=== PATIENT | female | born 1970 | race Caucasian/White ===

== ENCOUNTER 2016-11-02 07:36 | Emergency (ER) | payer MEDICAID ==
[2016-11-02 07:50] VITALS: RESP 16; TEMP 98.2
[2016-11-02] MEDS ORDERED: NS 1,000 ML IV ONE (07:51)
[2016-11-02 08:17] LABS: ANION GAP 12 mEq/L (8-16); CALCIUM 9.9 mg/dL (8.5-10.4); CARBON DIOXIDE 29 mEq/l (22-31); CHLORIDE 99 mEq/L (97-110); CREATININE 0.7 mg/dL (0.6-1.0); GLOMERULAR FILTRATION RATE > 60; GLUCOSE 119 mg/dL (70-100); POTASSIUM 3.4 mEq/L (3.5-5.2); SODIUM 140 mEq/L (134-144)
--- NOTE | 2016-11-02 08:20 | UCPHY ---
H & P Patient Type: Established Chief Complaint Nursing Narrative: C/o nausea, vomiting, and diarrhea (once) since yesterday. Reports pt got flu vaccine on Wednesday. Denies nausea currently. Time Seen by Provider: 11/02/16 07:50 HPI/ROS: This patient complains of vomiting. She explains that she developed some nausea on Wednesday night, 2 days prior to arrival in yesterday morning started with vomiting had several episodes through the day. She now feels fatigued explain that she feels like all of her energy is down in her feet. She had 1 episode of diarrhea yesterday but a normal bowel movement this morning. She is not tolerating p.o. intake because any attempts at fluids as caused her to vomit. At the moment she has mild ongoing nausea. She speculates that they influenza vaccination she had on Wednesday may be contributing to her symptoms. ROS: No fevers or chills. No other constitutional symptoms. HEENT: No recent URI symptoms. She has a 3/10 mild headache similar to previous headaches by parietal in location currently. This improved from yesterday when it was more of a moderate pain. Neuro: No confusion. No other symptoms. Pulmonary: No coughing. Cardiovascular: No heart palpitations. She does report mild lightheadedness this morning. GI: She had moderate abdominal cramping yesterday that has resolved. Currently no abdominal pain. : No urinary symptoms. And 10 point ROS is otherwise negative. Source: Patient Exam Limitations: No limitations - Personal History LMP (Females 10-55): Hysterectomy Current Tetanus Diphtheria and Acellular Pertussis (TDAP): Yes Tetanus Vaccine Date: within 10 years - Medical/Surgical History PMH: Past surgical history: Total hysterectomy. Umbilical hernia repair Cholecystectomy Hx Asthma: No Hx Chronic Respiratory Disease: No Hx Diabetes: No Hx Cardiac Disease: No Hx Renal Disease: No Hx Cirrhosis: No Hx Alcoholism: No Hx HIV/AIDS: No Hx Splenectomy or Spleen Trauma: No Other PMH: med hx-diverticulitis,thyroid,fibromyalgia. [id number],hyst, thyroidec,chol, tubal ligation,umbilical hernia - Family History Significant Family History: No pertinent family hx - Social History Smoking Status: Former smoker Alcohol Use: Sober Drug Use: None Additional Social History: No recent foreign travel or suspect food - Physical Exam Exam: General Appearance: Alert, no distress. Eyes: Pupils equal and round no pallor or injection. ENT, Mouth: Mucous membranes dry. Respiratory: There are no retractions, lungs are clear to auscultation. Cardiovascular: Regular rate and rhythm. Gastrointestinal: Abdomen is soft and nontender, no masses, bowel sounds normal. Back: No CVA tenderness Neurological: Alert with no focal deficits Skin: Warm and dry, no rashes. Musculoskeletal: Neck is supple nontender. Extremities are symmetrical, full range of motion. Psychiatric: Mood and affect normal DIFFERENTIAL DIAGNOSIS: After history and physical exam differential diagnosis was considered for viral gastroenteritis, immunizations side effects, food poisoning Constitutional: Initial Vital Signs Temperature (C) 36.8 C 11/02/16 07:48 Heart Rate 81 11/02/16 07:48 Respiratory Rate 16 11/02/16 07:48 Blood Pressure 134/66 H 11/02/16 07:48 O2 Sat (%) 95 11/02/16 07:48 O2 Delivery Mode Room Air Allergies/Adverse Reactions: amoxicillin trihydrate [From Augmentin] Allergy (Mild, Verified 11/02/16 07:47) Rash potassium clavula *RETIRED-06/27/12 [From Augmentin] Allergy (Mild, Verified 07:47) Rash sulfamethoxazole [From Bactrim] Allergy (Unknown, Verified 11/02/16 07:47) GI trimethoprim [From Bactrim] Allergy (Unknown, Verified 11/02/16 07:47) GI Home Medications: Medication Instructions Recorded Levothyroxine 06/13/16 Ondansetron Odt [Zofran Odt] 4 - 8 mg PO Q4PRN PRN #4 tab 11/02/16 Medical Decision Making ED Course/Re-evaluation: IV normal saline bolus with improvement in her symptoms. She no longer feels as much fatigue or lightheadedness per her report. No significant electrolyte abnormalities on her basic metabolic panel. She appears clinically well. On a recheck at 8:45 a.m. she has no orthostatic symptoms feels improved and would like to go home. This time she has no nausea or abdominal pain. - Data Points Laboratory Results: Laboratory Results 11/02/16 07:58 11/02/16 07:58 Sodium 140 mEq/L (134-144) Potassium 3.4 L mEq/L (3.5-5.2) Chloride 99 mEq/L (97-110) Carbon Dioxide 29 mEq/l (22-31) Anion Gap 12 mEq/L (8-16) BUN 19 mg/dL (7-23) Creatinine 0.7 mg/dL (0.6-1.0) Estimated GFR > 60 Glucose 119 H mg/dL (70-100) Calcium 9.9 mg/dL (8.5-10.4) Medications Given: Discontinued Medications Sodium Chloride (Ns) 1,000 mls @ 0 mls/hr IV ONCE ONE PRN Reason: Wide Open Stop: 11/02/16 07:52 Last Admin: 11/02/16 07:58 Dose: 1,000 mls Departure - Departure Disposition: Home, Routine, Self-Care Clinical Impression: Vomiting, Dehydration Condition: Good Instructions: Acute Nausea and Vomiting (ED) Additional Instructions: Diagnosis: 1. Vomiting 2. Dehydration Plan: Drink plenty fluids Light diet until you feel improved Zofran for nausea or vomiting if needed. Return for any significant worsening despite the treatment plan. Referrals: TIAGO EGAN,. [Primary Care Provider] - As per Instructions Stand Alone Forms: Work Excuse Prescriptions: Ondansetron Odt [Zofran Odt] 4 - 8 mg PO Q4PRN PRN #4 tab PRN Reason: Vomiting - PQRS PQRS Measurement: NA
[2016-11-02 08:53] VITALS: BP 124/63; PULSE 66; O2SAT 97
== END 2016-11-02 08:53 | disposition home or self-care (01) ==
LOC: CED 07:36
DX: R11.2 Nausea with vomiting, unspecified (principal); E86.0 Dehydration; R19.7 Diarrhea, unspecified; Z87.891 Personal history of nicotine dependence
CPT/HCPCS: 80048-PO; 96360-PO; G0463-PO

== ENCOUNTER 2017-02-12 08:49 | Emergency (ER) | payer MEDICAID ==
--- NOTE | 2017-02-12 08:54 | EDPHY ---
H & P HPI/ROS: CHIEF COMPLAINT: Vomiting. HISTORY OF PRESENT ILLNESS: The patient is a 46-year-old female who presents with vomiting since yesterday morning. She arrived at work feeling normal but became diaphoretic and began to vomit. She admits associated lightheadedness. She has been unable to tolerate food or fluids for over 24 hours. She denies diarrhea, constipation (normal bowel movement this morning), fever, cough, hematemesis, abdominal pain, recent sickness. She has a history of similar symptoms, about once per month, since October. She has been exploring this with her PCP. She last vomited 8 hours ago. REVIEW OF SYSTEMS: A 10 point review of systems was performed and is negative with the exception of the elements mentioned in the history of present illness. Source: Patient Exam Limitations: No limitations - Personal History Tetanus Vaccine Date: within 10 years - Medical/Surgical History Hx Asthma: No Hx Chronic Respiratory Disease: No Hx Diabetes: No Hx Cardiac Disease: No Hx Renal Disease: No Hx Cirrhosis: No Hx Alcoholism: No Hx HIV/AIDS: No Hx Splenectomy or Spleen Trauma: No Other PMH: 1. Diverticulitis. 2. Fibromyalgia. 3. IBS. 4. . 5. Hysterectomy. 6. Thyroidectomy. 7. Cholecystectomy. 8. Tubal ligation. 9. 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 - Physical Exam Exam: General Appearance: Alert, no acute distress. BP 128/90. Eyes: Pupils equal and round, no conjunctival injection, no discharge. ENT, Mouth: Mucous membranes are moist, no oropharyngeal erythema or edema. Neck: No lymphadenopathy, supple. Respiratory: Lungs are clear to auscultation; no wheezes, rales, or rhonchi. Cardiovascular: Regular rate and rhythm; no murmur, rub, or gallop. Gastrointestinal: Abdomen is soft and nontender, no masses or organomegaly, bowel sounds normal. Skin: Warm and dry, no rashes, normal color. Back: Nontender to palpation over the thoracolumbar spine. Extremities: No lower extremity edema, no calf tenderness or swelling. Neurological: Alert and oriented. Moving all four extremities easily and equally. Psychiatric: Normal affect. Constitutional: Initial Vital Signs Temperature (C) 36.3 C 02/12/17 09:05 Heart Rate 62 02/12/17 09:05 Respiratory Rate 16 02/12/17 09:05 Blood Pressure 128/90 H 02/12/17 09:05 O2 Sat (%) 97 02/12/17 09:05 O2 Delivery Mode Room Air Allergies/Adverse Reactions: amoxicillin trihydrate [From Augmentin] Allergy (Mild, Verified 02/12/17 09:12) Rash potassium clavula *RETIRED-06/27/12 [From Augmentin] Allergy (Mild, Verified 09:12) Rash sulfamethoxazole [From Bactrim] Allergy (Unknown, Verified 02/12/17 09:12) GI trimethoprim [From Bactrim] Allergy (Unknown, Verified 02/12/17 09:12) GI Home Medications: Medication Instructions Recorded Levothyroxine 06/13/16 Percocet 5/325 (*) 02/12/17 Medical Decision Making ED Course/Re-evaluation: 46-year-old female presents with 24 hours of vomiting. She denies associated symptoms. She has a normal exam. An IV was established. 1L IV saline administered for rehydration. 1031: Reassessed patient. She feels much better after receiving the normal saline intravenously. She does not want to take any anti emetics. She has rectal Phenergan and oral Zofran at home to use if needed. She feels that she will be able to tolerate p.o.. She feels ready to return home. She does not want undergo a p. o. challenge in the emergency department. On reexamination her abdomen remains soft and nontender. I do not suspect cholecystitis, pancreatitis, appendicitis, gastroenteritis (no diarrhea), or diverticulitis (she has h/o diverticulitis). This could be gastritis, but there is no pain involved. She does not appear toxic or seriously ill and I think she can safely return home. - Data Points Medications Given: Discontinued Medications Sodium Chloride (Ns) 1,000 mls @ 0 mls/hr IV ONCE ONE PRN Reason: Wide Open Stop: 02/12/17 09:46 Last Admin: 02/12/17 09:45 Dose: 1,000 mls Departure - Departure Disposition: Home, Routine, Self-Care Clinical Impression: Vomiting Qualifiers: Vomiting type: unspecified Vomiting Intractability: non-intractable Nausea presence: with nausea Qualified Code(s): R11.2 - Nausea with vomiting, unspecified Condition: Good Instructions: Acute Nausea and Vomiting (ED) Additional Instructions: Drink only clear fluids for the next 24 hours. Advance diet slowly as tolerable. Start with bland foods such as bananas, rice, toast, applesauce, etc. Follow up with your primary care provider for reevaluation. Return for any serious worsening of condition. Referrals: TIAGO EGAN,. [Primary Care Provider] - As per Instructions Stand Alone Forms: Work Excuse Report Scribed for: Radha Posada Report Scribed by: Yahir Yarbrough Date of Report: 02/12/17 Time of Report: 09:20 Physician Review and Approval Statement: 02/12/17 09:16 Portions of this note were transcribed by the neuropsychology medical consultant. I, Dr. Radha Posada, personally performed the history, physical exam, and medical decision- making; and confirmed the accuracy of the information in the transcribed note.
[2017-02-12 09:09] VITALS: TEMP 97.3
[2017-02-12] MEDS ORDERED: NS 1,000 ML IV ONE (09:45)
[2017-02-12 10:32] VITALS: BP 124/78; PULSE 57; RESP 14; O2SAT 94
== END 2017-02-12 11:02 | disposition home or self-care (01) ==
LOC: CED 08:49
DX: R11.2 Nausea with vomiting, unspecified (principal); Z87.891 Personal history of nicotine dependence

== ENCOUNTER 2018-03-23 08:48 | Emergency (ER) | payer MEDICAID ==
[2018-03-23] MEDS ORDERED: NS 1,000 ML IV ONE (09:16)
--- NOTE | 2018-03-23 09:16 | EDPHY ---
H & P Time Seen by Provider: 03/23/18 08:55 HPI/ROS: 47 yo F presents complaining of dehydration. She states yesterday early in the morning she began vomiting and vomited throughout the night until approximately 3:00 a.m., associated with mild upper abdominal cramping. She states this morning of a cramping and vomiting have dissipated however she is very concerned that she is dehydrated."I feel like a prune" No diarrhea and no further abdominal pain. Review of systems As per HPI General no fever no chills no weakness HEENT no eye pain no eye discharge. No eye redness, no sore throat Respiratory no cough, no shortness of breath Cardiac no chest pain, no peripheral edema GI no abdominal pain, no diarrhea, no constipation, no nausea, positive vomiting no flank pain, no hematuria, no dysuria Musculoskeletal no myalgias, no joint pain Heme no easy bruising, no easy bleeding Endo no polyuria, no polydipsia Skin no rashes, no pruritus Neuro no syncope, no dizziness, no headaches Psych is no suicidal ideation, no homicidal ideation Past Medical/Surgical History: Colon resection, May 2017 Social History: Denies alcohol or drug use Smoking Status: Former smoker Physical Exam: 47-year-old female alert and oriented no acute distress nontoxic appearance, afebrile HEENT atraumatic normocephalic, extraocular muscles intact, anicteric Oropharynx negative for erythema negative exudate, tolerating her own secretions Neck supple no meningismus Lungs clear to auscultation bilaterally Heart regular rate and rhythm without murmur rub or gallop Abdomen nondistended normoactive bowel sounds soft nontender, no guarding no rebound Back no CVA tenderness, no step-offs, no spinal tenderness Extremities no cyanosis clubbing or edema Neuro alert and oriented, no focal deficits Constitutional: Initial Vital Signs Temperature (C) 37.2 C 03/23/18 08:55 Heart Rate 89 03/23/18 08:55 Respiratory Rate 16 03/23/18 08:55 Blood Pressure 118/85 H 03/23/18 08:55 O2 Sat (%) 96 03/23/18 08:55 O2 Delivery Mode Room Air Allergies/Adverse Reactions: amoxicillin trihydrate [From Augmentin] Allergy (Mild, Verified 03/23/18 08:58) Rash potassium clavula *RETIRED-06/27/12 [From Augmentin] Allergy (Mild, Verified 04/04 08:58) Rash sulfamethoxazole [From Bactrim] Allergy (Unknown, Verified 03/23/18 08:58) GI trimethoprim [From Bactrim] Allergy (Unknown, Verified 03/23/18 08:58) GI Home Medications: Medication Instructions Recorded Levothyroxine 06/13/16 Percocet 5/325 (*) 02/12/17 Medical Decision Making ED Course/Re-evaluation: Patient seen and evaluated for"feeling dehydrated" Benign abdominal exam IV established IV fluids normal saline 1 L given Following fluids patient tolerated a popsicle Feeling markedly improved Impression Dehydration post gastroenteritis/gastritis Plan Discharge home Follow-up with primary care physician Return as needed Differential Diagnosis: Differential diagnosis considered but not limited to: Gastroenteritis, cyclical vomiting, gastritis, dehydration, bowel obstruction - Data Points Medications Given: Discontinued Medications Sodium Chloride (Ns) 1,000 mls @ 0 mls/hr IV ONCE ONE PRN Reason: Wide Open Stop: 03/23/18 09:17 Last Admin: 03/23/18 09:27 Dose: 1,000 mls Departure - Departure Disposition: Home, Routine, Self-Care Clinical Impression: Dehydration Condition: Good Instructions: Dehydration (ED), Acute Nausea and Vomiting (ED) Referrals: Sagar Rashid MD [Primary Care Provider] - As per Instructions Stand Alone Forms: Work Excuse
[2018-03-23 10:41] VITALS: BP 148/97
== END 2018-03-23 10:53 | disposition home or self-care (01) ==
LOC: CED 08:48
DX: E86.0 Dehydration (principal); Z87.891 Personal history of nicotine dependence

== ENCOUNTER 2018-04-22 09:30 | Emergency (ER) | payer MEDICAID ==
[2018-04-22] MEDS ORDERED: ONDANSETRON DISINTEGRATING 4 MG TAB PO ONE (09:39)
[2018-04-22] MEDS ORDERED: NS 500 ML IV ONE (09:40)
[2018-04-22] MEDS ORDERED: ONDANSETRON 4 MG/2 ML VIAL IVP ONE (09:52)
--- NOTE | 2018-04-22 10:02 | EDPHY ---
H & P Time Seen by Provider: 04/22/18 10:00 HPI/ROS: Chief complaint. Nausea and vomiting HPI. 47-year-old female with nausea vomiting that began 3 o'clock this morning. She thinks possibly bad food. Otherwise no recent travel or sick contacts. No diarrhea. She has generalized crampy abdominal pain. She was seen for same March 23. No chest discomfort or trouble breathing. No fever. No urinary symptoms. ROS Constitutional. no fever/chills, no weakness Eyes. no problems with vision ENT. no sore throat, no nasal drainage Cardiovascular. no chest pain Respiratory. no shortness of breath, no cough Abdominal. Abdominal pain with nausea vomiting but no diarrhea . no problems urinating MS. no calf pain/swelling, no neck/back pain, no joint pain Skin. no rash Lymph. no swollen glands Neuro. no headache, no dizziness, no difficulty walking or with speech Past Medical/Surgical History: Past medical history is significant for diverticulitis, fibromyalgia, IBS, hysterectomy, cholecystectomy in 2017, thyroidectomy, cholecystectomy, tubal ligation Social History: Single, nonsmoker, no alcohol Smoking Status: Former smoker Physical Exam: General Appearance: Alert well-developed female moderate distress vital signs are stable Eyes: Pupils equal and round no pallor or injection. ENT, Mouth: Mucous membranes are moist. Respiratory: There are no retractions, lungs are clear to auscultation. Cardiovascular: Regular rate and rhythm. Gastrointestinal: Abdomen is soft with generalized diffuse tenderness. Normal bowel sounds. No mass. Neurological: Intact Skin: Warm and dry, no rashes. Musculoskeletal: Neck is supple nontender. Extremities symmetrical, full range of motion. Psychiatric: Patient is oriented X 3, there is no agitation. Constitutional: Initial Vital Signs Temperature (C) 36.6 C 04/22/18 09:34 Heart Rate 62 04/22/18 09:34 Respiratory Rate 18 04/22/18 09:34 Blood Pressure 190/120 H 04/22/18 09:34 O2 Sat (%) 95 04/22/18 09:34 O2 Delivery Mode Nasal Cannula O2 (L/minute) 2 Allergies/Adverse Reactions: amoxicillin trihydrate [From Augmentin] Allergy (Mild, Verified 04/22/18 09:38) Rash potassium clavula *RETIRED-06/27/12 [From Augmentin] Allergy (Mild, Verified 04/04 09:38) Rash sulfamethoxazole [From Bactrim] Allergy (Unknown, Verified 04/22/18 09:38) GI trimethoprim [From Bactrim] Allergy (Unknown, Verified 04/22/18 09:38) GI Home Medications: Medication Instructions Recorded Levothyroxine 06/13/16 Oxycodone HCl 04/22/18 Promethazine HCl [Phenergan 50mg 50 mg PO Q6-8PRN PRN #10 tablet 04/22/18 tab] Medical Decision Making - Diagnostics Imaging Results: Imaging Impressions Abdomen CT 04/22/18 11:11 Impression: 1. Normal appendix. No obstruction or adynamic ileus. 2. No localized intra-abdominal inflammatory process. 3. Minimal post cholecystectomy biliary dilation is unchanged since 2011. Findings discussed with Emergency Department physician, APOLONIA ZAMAN at 2017 12:12. CT abdomen and pelvis reviewed by me and discussed with Dr. Velasquez shows a normal appendix. No evidence of bowel obstruction. No evidence for abscess. Procedures: IV normal saline. Zofran and morphine for nausea and pain ED Course/Re-evaluation: Re-evaluation at 11:00 a.m.. Patient has thrown up 1 more time. She complains of continued abdominal discomfort. We discussed further imaging studies as the patient has had previous abdominal surgery. She expresses understanding and agreement Point of care CBC and chemistry are normal with white blood cell count 8.9 Re-evaluation again at 12:20 p.m.. Patient and I discussed imaging and lab results. We discussed treatment plan including criteria for return and importance follow-up and further evaluation. She expresses understanding and agreement. Where finishing her 2nd L of saline. Recheck again at 1:15 p.m.. 2nd bag of saline is in. No further vomiting. Patient and I again talked about laboratory and imaging study evaluation. We again talked about treatment plan including criteria for return and importance of follow-up and further evaluation. She expresses understanding and agreement Differential Diagnosis: I considered small-bowel obstruction as the patient has had previous abdominal surgery. Considered IBS and diverticulitis as well. There are no acute findings. She has a normal CBC, chemistry, CT abdomen and pelvis - Data Points Laboratory Results: 04/22/18 11:19 POC Sodium 141 mEq/L mEq/L (135-145) POC Potassium 3.5 mEq/L mEq/L (3.3-5.0) POC Chloride 101.0 mEq/L mEq/L (97-110) POC Total CO2 26 mEq/L mEq/L (22-31) POC BUN 14 mg/dL mg/dL (7-23) POC Creatinine 0.6 mg/dL mg/dL (0.6-1.0) POC Glucose 113 mg/dL H mg/dL (70-100) POC Calcium 8.6 mg/dL mg/dL (8.5-10.4) Medications Given: Discontinued Medications Diphenhydramine HCl (Benadryl Injection) 12.5 mg IVP EDNOW ONE Stop: 04/22/18 11:33 Last Admin: 04/22/18 11:40 Dose: 12.5 mg Sodium Chloride (Ns) 500 mls @ 1,000 mls/hr IV ONCE ONE PRN Reason: Protocol Stop: 04/22/18 10:09 Last Admin: 04/22/18 09:49 Dose: 500 mls Sodium Chloride (Ns) 1,000 mls @ 0 mls/hr IV EDNOW ONE; Wide Open PRN Reason: Protocol Stop: 04/22/18 11:33 Last Admin: 04/22/18 11:37 Dose: 1,000 mls Metoclopramide HCl (Reglan Injection) 10 mg IVP EDNOW ONE Stop: 04/22/18 11:33 Last Admin: 04/22/18 11:37 Dose: 10 mg Morphine Sulfate (Morphine) 6 mg IVP EDNOW ONE Stop: 04/22/18 10:07 Last Admin: 04/22/18 10:33 Dose: Not Given Morphine Sulfate (Morphine) 6 mg IVP EDNOW ONE Stop: 04/22/18 10:26 Last Admin: 04/22/18 10:26 Dose: 6 mg Ondansetron HCl (Zofran Odt) 4 mg PO EDNOW ONE Stop: 04/22/18 09:40 Last Admin: 04/22/18 10:08 Dose: Not Given Ondansetron HCl (Zofran) 4 mg IVP EDNOW ONE Stop: 04/22/18 09:53 Last Admin: 04/22/18 09:56 Dose: 4 mg Promethazine HCl (Phenergan) 12.5 mg IVP EDNOW ONE Stop: 04/22/18 10:15 Last Admin: 04/22/18 10:22 Dose: 12.5 mg Point of Care Test Results: CBC CBC Collection Date 04/22/18 CBC Collection Time 09:50 WBC 8.9 RBC 5.12 HGB 16.4 HCT 49.5 PLT 211 Neut # 6.4 Neut 71.4 LYMPH # 2.1 LYMPH 23.9 Other WBC # 0.4 Other WBC 4.7 MCV 96.7 Chemistry 04/22/18 11:19 POC Sodium 141 mEq/L mEq/L (135-145) POC Potassium 3.5 mEq/L mEq/L (3.3-5.0) POC Chloride 101.0 mEq/L mEq/L (97-110) POC Total CO2 26 mEq/L mEq/L (22-31) POC BUN 14 mg/dL mg/dL (7-23) POC Creatinine 0.6 mg/dL mg/dL (0.6-1.0) POC Glucose 113 mg/dL H mg/dL (70-100) POC Calcium 8.6 mg/dL mg/dL (8.5-10.4) Departure - Departure Disposition: Home, Routine, Self-Care Clinical Impression: Vomiting Qualifiers: Vomiting type: unspecified Vomiting Intractability: non-intractable Nausea presence: with nausea Qualified Code(s): R11.2 - Nausea with vomiting, unspecified Condition: Good Instructions: Promethazine (By mouth), Acute Nausea and Vomiting (ED) Additional Instructions: Frequent, small sips fluids well nauseated. Gradual diet advancement. Phenergan as needed for nausea and vomiting. Return for worsening pain or vomiting. Recheck in 1 day if not improved Referrals: Sagar Rashid MD [Primary Care Provider] - 1 day, if not improved Prescriptions: Promethazine HCl [Phenergan 50mg tab] 50 mg PO Q6-8PRN PRN #10 tablet PRN Reason: Nausea/Vomiting, Use 1st
[2018-04-22] MEDS ORDERED: PROMETHAZINE HCL 25 MG/ML INJ IVP ONE (10:14)
[2018-04-22] MEDS ORDERED: IOPAMIDOL (ISOVUE-300) 100 ML BTL ONE (11:17)
[2018-04-22] MEDS ORDERED: NS 1,000 ML IV ONE (11:32)
[2018-04-22] MEDS ORDERED: METOCLOPRAMIDE 10 MG/2 ML VIAL IVP ONE (11:32)
[2018-04-22 13:41] VITALS: BP 170/110
== END 2018-04-22 13:37 | disposition home or self-care (01) ==
LOC: CED 09:30
DX: R11.2 Nausea with vomiting, unspecified (principal); E86.9 Volume depletion, unspecified; Z87.891 Personal history of nicotine dependence
CPT/HCPCS: 74177-PO; 80048-PO; 96374; J1200; J2270; J2405; J2550; J2765; Q9967

== ENCOUNTER 2018-07-12 12:58 | Emergency (ER) | payer SELFPAY ==
[2018-07-12] MEDS ORDERED: NS 2,000 ML IV ONE (13:10)
[2018-07-12] MEDS ORDERED: METOCLOPRAMIDE 10 MG/2 ML VIAL IVP ONE (13:13)
[2018-07-12] MEDS ORDERED: KETOROLAC 15 MG/1 ML SDV IVP ONE ×2 (13:13→14:49)
[2018-07-12] MEDS ORDERED: HALOPERIDOL LACT 5 MG/ML INJ IVP ONE (13:13)
[2018-07-12] MEDS ORDERED: LORazepam 2 MG/ML INJ IVP ONE (13:20)
--- NOTE | 2018-07-12 13:38 | EDPHY ---
H & P Stated Complaint: abd pain and vomiting started today . Time Seen by Provider: 07/12/18 13:07 HPI/ROS: This patient presents with nausea, vomiting & abdominal pain. She explains that she developed some crampy, achy and sharp pains in upper half of her belly associated with nausea starting at 3:45 a.m. The patient develops onset of vomiting and/or around 11 30 a.m. Today with ongoing nausea and vomiting currently. She reports currently having mild upper abdominal crampy discomfort similar prior episodes of her vomiting. She has not taken any medications today. She was given ride here by private vehicle for evaluation. ROS: Constitutional: No fevers HEENT: No URI symptoms Pulmonary: No cough shortness of breath Cardiovascular: No chest pain. GI: No lower belly pain. No hematemesis or coffee-ground emesis. No diarrhea. : No urinary symptoms. No hematuria Neuro: Complaints 10 point review of symptoms is performed and otherwise negative with exception of pertinent positives and negatives listed in HPI and ROS Source: Patient Exam Limitations: No limitations - Personal History Current Tetanus Diphtheria and Acellular Pertussis (TDAP): Yes Tetanus Vaccine Date: 2016 - Medical/Surgical History Hx Asthma: No Hx Chronic Respiratory Disease: No Hx Diabetes: No Hx Cardiac Disease: No Hx Renal Disease: No Hx Cirrhosis: No Hx Alcoholism: No Hx HIV/AIDS: No Hx Splenectomy or Spleen Trauma: No Other PMH: 1. Diverticulitis with partial colectomy. 2. Fibromyalgia. 3. IBS, chronic abdominal pain. 4. . 5. Hysterectomy. 6. Colectomy 2017. 6. Thyroidectomy. 7. Cholecystectomy. 8. Tubal ligation. 9. Umbilical hernia. Cannabis abuse - Family History Significant Family History: No pertinent family hx - Social History Smoking Status: Former smoker Alcohol Use: None Drug Use: Marijuana Additional Social History: The patient reports that she has cut back a bit on her marijuana use which has been chronic she reports that is now intermittent. She denies any other drug use. - Physical Exam Exam: Vital signs notable for hypertension General Appearance: Alert, no distress. Eyes: Pupils equal and round no pallor or injection. ENT, Mouth: Mucous membranes moist. Respiratory: There are no retractions, lungs are clear to auscultation. Cardiovascular: Regular rate and rhythm. No murmur gallop or rub Gastrointestinal: Normoactive, soft, mild epigastric tenderness no organomegaly Neurological: GCS 15 Skin: Warm and dry, no rashes. Musculoskeletal: Neck is supple nontender. Extremities are symmetrical, full range of motion. Psychiatric: Mood and affect normal DIFFERENTIAL DIAGNOSIS: After history and physical exam differential diagnosis was considered for cannabis hyperemesis, pancreatitis, hepatitis, viral illness , gastritis Constitutional: Initial Vital Signs Temperature (C) 36.8 C 07/12/18 13:05 Heart Rate 66 07/12/18 13:05 Respiratory Rate 20 07/12/18 13:05 Blood Pressure 223/126 H 07/12/18 13:05 O2 Sat (%) 96 07/12/18 13:05 O2 Delivery Mode Room Air Allergies/Adverse Reactions: amoxicillin trihydrate [From Augmentin] Allergy (Verified 07/12/18 13:04) Pt reports Rash potassium clavula *RETIRED-06/27/12 [From Augmentin] Allergy (Verified 07/12/18 13:04) Pt reports Rash sulfamethoxazole [From Bactrim] Allergy (Verified 07/12/18 13:04) Pt reports rash trimethoprim [From Bactrim] Allergy (Verified 07/12/18 13:04) Pt reports rash Home Medications: Medication Instructions Recorded Levothyroxine 06/13/16 Ondansetron Odt [Zofran Odt] 4 - 8 mg PO Q4PRN PRN #4 tab 07/12/18 Medical Decision Making ED Course/Re-evaluation: IV normal saline bolus Benadryl IV, Reglan, Haldol, Toradol with relief at 2:52 p.m. A pain level of 6 with nausea resolved when she hold still but recurrent nausea with movement. Patient treated with Zofran an additional dose of Toradol with relief. - Data Points Medications Given: Discontinued Medications Diphenhydramine HCl (Benadryl Injection) 25 mg IVP EDNOW ONE Stop: 07/12/18 13:13 Last Admin: 07/12/18 13:27 Dose: 25 mg Haloperidol Lactate (Haldol Injection) 5 mg IVP EDNOW ONE Stop: 07/12/18 13:14 Last Admin: 07/12/18 13:30 Dose: 5 mg Sodium Chloride (Ns) 2,000 mls @ 0 mls/hr IV EDNOW ONE; Wide Open PRN Reason: Protocol Stop: 07/12/18 13:11 Last Admin: 07/12/18 13:35 Dose: 2,000 mls Ketorolac Tromethamine (Toradol) 15 mg IVP EDNOW ONE Stop: 07/12/18 13:14 Last Admin: 07/12/18 13:31 Dose: 15 mg Ketorolac Tromethamine (Toradol) 15 mg IVP ONCE ONE Stop: 07/12/18 14:50 Last Admin: 07/12/18 15:15 Dose: 15 mg Lorazepam (Ativan Injection) 1 mg IVP EDNOW ONE Stop: 07/12/18 13:21 Last Admin: 07/12/18 15:23 Dose: Not Given Metoclopramide HCl (Reglan Injection) 5 mg IVP EDNOW ONE Stop: 07/12/18 13:14 Last Admin: 07/12/18 13:34 Dose: 5 mg Ondansetron HCl (Zofran) 4 mg IVP EDNOW ONE Stop: 07/12/18 14:50 Last Admin: 07/12/18 15:10 Dose: 4 mg Point of Care Test Results: Chemistry 07/12/18 07/12/18 13:46 13:29 POC Sodium 141 mEq/L mEq/L (135-145) POC Potassium 4.0 mEq/L mEq/L (3.3-5.0) POC Chloride 101.0 mEq/L mEq/L (97-110) POC Total CO2 25 mEq/L mEq/L (22-31) POC BUN 20 mg/dL mg/dL (7-23) POC Creatinine 0.7 mg/dL mg/dL (0.6-1.0) POC Glucose 107 mg/dL H mg/dL (70-100) POC Calcium 9.4 mg/dL mg/dL (8.5-10.4) POC Total Bilirubin 0.8 mg/dL mg/dL (0.1-1.4) POC GGT 10 IU/L IU/L (5-65) POC AST 29 IU/L IU/L (14-46) POC ALT 12 IU/L IU/L (9-52) POC Alk Phosphatase 54 IU/L IU/L (38-126) POC Total Protein 7.1 g/dL g/dL (6.3-8.2) POC Albumin 4.5 g/dL g/dL (3.5-5.0) POC Amylase 29 IU/L L IU/L (30-110) Liver Function Tests LFT Collection Date 07/12/18 LFT Collection Time 13:20 Departure - Departure Disposition: Home, Routine, Self-Care Clinical Impression: Cannabinoid hyperemesis syndrome, Dehydration Condition: Good Instructions: Acute Nausea and Vomiting (ED) Additional Instructions: Diagnosis: Vomiting 2. Abdominal pain Your symptoms may be attributable to marijuana use. Plan: Consider stopping marijuana Drink plenty fluids Light diet until he feel improved Zofran for nausea vomiting if needed Follow up with primary care physician for any ongoing symptoms Return emergency department for any significant worsening despite treatment plan Referrals: Sagar Rashid MD [Primary Care Provider] - As per Instructions Stand Alone Forms: Work Excuse Prescriptions: Ondansetron Odt [Zofran Odt] 4 - 8 mg PO Q4PRN PRN #4 tab PRN Reason: Vomiting
[2018-07-12] MEDS ORDERED: ONDANSETRON 4 MG/2 ML VIAL IVP ONE (14:49)
[2018-07-12 15:19] VITALS: BP 176/98
== END 2018-07-12 15:50 | disposition home or self-care (01) ==
LOC: CED 12:58
DX: R11.2 Nausea with vomiting, unspecified (principal); F12.188 Cannabis abuse with other cannabis-induced disorder; E86.0 Dehydration
CPT/HCPCS: 80048-PO; 80076-PO; 82150-PO; 96374; J1200; J1630; J1885; J2405; J2765